=== PATIENT | female | born 1950 | race African-American/Black ===

== ENCOUNTER 2016-07-06 10:44 | Emergency (ER) | payer MEDICARE, OTHER ==
[~2016-07-06] VITALS: Ht 170.2 cm; Wt 68.1 kg
[2016-07-06] MEDS ORDERED: TRAZ-144 PO (10:54)
[2016-07-06] MEDS ORDERED: QUET50TA PO (10:54)
[2016-07-06] MEDS ORDERED: HYDR-305 PO (10:54)
[2016-07-06] MEDS ORDERED: LISI-618 PO (10:54)
[2016-07-06] MEDS ORDERED: HYDROCODONE/ACETAMINOPHEN 10-325 MG TABLET PO ONE (11:45)
[2016-07-06] MEDS ORDERED: QUET100T PO (11:49)
[2016-07-06] MEDS ORDERED: TRAZ-147 PO (11:49)
[2016-07-06 12:17] VITALS: BP 155/81
== END 2016-07-06 12:20 | disposition home or self-care (01) ==
LOC: EMS 10:47
DX: G89.29 Other chronic pain (principal); M54.5 Low back pain; M79.1 Myalgia; I10 Essential (primary) hypertension; M19.90 Unspecified osteoarthritis, unspecified site; Z79.899 Other long term (current) drug therapy
CPT/HCPCS: 99283